=== PATIENT | female | born 1950 | race Caucasian/White ===

== ENCOUNTER 2016-09-16 10:08 | Emergency (ER) | payer MEDICARE ==
[2016-09-16] MEDS ORDERED: ONDANSETRON 4 MG/2 ML VIAL IVP STA ×2 (10:52→12:44)
[2016-09-16] MEDS ORDERED: SODIUM CHLORIDE 0.9% 1,000 ML IV ONE (10:52)
[2016-09-16] MEDS ORDERED: HYDROmorphone 1 MG/ML SYRINGE IVP STA (10:52)
[2016-09-16] MEDS ORDERED: KETOROLAC 60 MG/2 ML VIAL IVP STA (10:52)
[2016-09-16] MEDS ORDERED: HYDROmorphone 1 MG/ML SYRINGE ONE (11:12)
[2016-09-16] MEDS ORDERED: KETOROLAC 30 MG/ML VIAL ONE (11:12)
[2016-09-16] MEDS ORDERED: ONDANSETRON 4 MG/2 ML VIAL ONE ×2 (11:12→12:50)
[2016-09-16] MEDS ORDERED: DEXAMETHASONE 10 MG/ML VIAL PO STA (12:44)
[2016-09-16] MEDS ORDERED: TAMSULOSIN 0.4 MG CAPSULE PO STA (12:44)
[2016-09-16] MEDS ORDERED: TAMSULOSIN 0.4 MG CAPSULE ONE (12:50)
[2016-09-16] MEDS ORDERED: CHERRY SYRUP 10 ML UDC PO ONE (12:51)
[2016-09-16] MEDS ORDERED: DEXAMETHASONE 10 MG/ML VIAL ONE (12:51)
[2016-09-16] MEDS ORDERED: METOCLOPRAMIDE 10 MG/2 ML VIAL IVP STA (13:16)
[2016-09-16] MEDS ORDERED: METOCLOPRAMIDE 10 MG/2 ML VIAL IVP ONE (13:19)
== END 2016-09-16 14:04 | disposition home or self-care (01) ==
DX: N13.2 Hydronephrosis with renal and ureteral calculous obstruction (principal); K57.30 Diverticulosis of large intestine without perforation or abscess without bleeding; R10.32 Left lower quadrant pain
CPT/HCPCS: 36415; 74176; 80053; 83690; 85025; 96374; 96375; 96376; 99283; 99284; A9270; J1170

== ENCOUNTER 2017-02-05 11:48 | Outpatient (CLI) | payer MEDICARE ==
--- NOTE | 2017-02-05 15:37 | XRAY Report ---
FOUR VIEW RIGHT KNEE: 02/05/2017 CLINICAL INDICATION: Pain. FINDINGS: AP, lateral, and bilateral oblique views of the right knee demonstrate no evidence of acut e fracture or dislocation. The joint spaces are preserved. No effusion is present. IMPRESSION: NORMAL RIGHT KNEE. JOB #: [id number] EXT JOB #:[id number]
== END 2017-02-05 11:49 | disposition home or self-care (01) ==
LOC: DI.S 11:48
PROVIDERS: ATTEND Registered Nurse
DX: M25.561 Pain in right knee (principal)

== ENCOUNTER 2017-03-04 09:15 | Outpatient (CLI) | payer MEDICARE ==
--- NOTE | 2017-03-04 14:50 | MRI Report ---
EXAM: RIGHT KNEE MRI WITHOUT CONTRAST EXAM DATE: 03/04/2017 10:18 AM. CLINICAL HISTORY: Constant right knee pain for 3 months with no history of trauma. Pain worst in the lateral and posterior joint line. COMPARISON: X-ray 02/05/2017. TECHNIQUE: Multiplanar, multisequence T1-weighted and fluid-sensitive sequences of the knee without c ontrast. Other: None. FINDINGS: Bones: No fractures or subluxations. No marrow edema. No bone lesions. Articular Cartilage: There is moderate thinning of the hyaline cartilage of the medial compartment. T here is mild lateral compartment cartilage thinning. There is minimal erosion of the hyaline cartilag e of the medial patellar facet. Medial Meniscus: There is partial extrusion. Lateral Meniscus: There is an oblique undersurface tear of the posterior horn of the lateral meniscus . Cruciate Ligaments: The anterior and posterior cruciate ligaments are intact. Collateral Ligaments: The medial collateral and lateral collateral ligamentous structures are intact. Tendons: The quadriceps, patellar, semimembranosus, and popliteus tendons are unremarkable. Musculature: No edema or fatty atrophy. Other: There is a moderate-sized joint effusion with a popliteal cyst. The cyst has leaked into the s oft tissues of the calf. No loose bodies. The medial and lateral retinacula are intact. The subcuta neous tissues and fat pads are unremarkable. IMPRESSION: 1. Mild medial compartment osteoarthritis. Minimal lateral and patellofemoral osteoarthritis. 2. Degenerative tearing of the lateral meniscus. 3. Moderate-sized joint effusion with a leaking popliteal cyst. [facility] MUSCULOSKELETAL RADIOLOGY SECTION Referring Provider Line: [phone] SITE ID: [id number]
== END 2017-03-04 09:16 | disposition home or self-care (01) ==
LOC: DI 09:15
PROVIDERS: ATTEND Physician Assistant
DX: M17.11 Unilateral primary osteoarthritis, right knee (principal); M25.461 Effusion, right knee; M71.21 Synovial cyst of popliteal space [Baker], right knee; M23.300 Other meniscus derangements, unspecified lateral meniscus, right knee

== ENCOUNTER 2018-07-09 08:07 | Outpatient (CLI) | payer MEDICARE | END 2018-07-09 08:08 | disposition home or self-care (01) | LOC: DI 08:07 | PROVIDERS: ATTEND Registered Nurse | DX: R01.1 Cardiac murmur, unspecified (principal) | CPT/HCPCS: 93306 ==

== ENCOUNTER 2018-08-22 12:12 | Emergency (ER) | payer MEDICARE ==
[2018-08-22 12:20] VITALS: BP 147/84
--- NOTE | 2018-08-22 13:45 | Ultrasound Report ---
Reason: leg pain Procedure Date: 08/22/2018 Accession Number: [id number] / [id number] Procedure: US - Duplex Ext Veins Left CPT Code: FULL RESULT: EXAM: LEFT LOWER EXTREMITY VENOUS ULTRASOUND EXAM DATE: 08/22/2018 01:29 PM. CLINICAL HISTORY: Leg pain. COMPARISON: None. TECHNIQUE: Real-time sonographic vascular imaging was performed by the wick tender through the lower extremity utilizing both color-flow and Doppler spectral analysis. Multiple jewelry sales representative static images were saved for review. FINDINGS: Common Femoral Vein (CFV): Normal. CFV-GSV Junction: Normal. Profunda Femoral Vein (PFV): Normal. Femoral Vein (FV) Prox: Normal. Femoral Vein (FV) Mid: Normal. Femoral Vein (FV) Dist: Normal. Popliteal Vein: Normal. Posterior Tibial Veins: Normal. Peroneal Veins: Normal. Contralateral Side CFV: Normal. Other: None. IMPRESSION: No evidence for deep venous thrombosis. [facility]
--- NOTE | 2018-08-22 13:57 | ED Physician Documentation ---
PD HPI LOWER EXT INJURY - Stated complaint Stated Complaint: POST SURGICAL COMPLICATIONS - Chief complaint Chief Complaint: Ext Problem - History obtained from History obtained from: Patient - History of Present Illness PD HPI LOW EXT INJURY LOCATION: Left (She is 5 days out from a left partial knee replacement by Dr. Jorgensen at [facility]. She noticed that ever since the surgery her calf hurt more than her incision and she was referred here to rule out DVT. She has no history of DVT. No chest pain or trouble breathing.) Review of Systems Constitutional: denies: Fever, Chills Throat: reports: Reviewed and negative Cardiac: reports: Reviewed and negative Respiratory: reports: Reviewed and negative PD PAST MEDICAL HISTORY - Past Medical History Past Medical History: No Cardiovascular: None Respiratory: None GI: None : None Musculoskeletal: None - Past Surgical History Past Surgical History: Yes General: Appendectomy Ortho: Knee replacement HEENT: Cataracts, Tonsil/Adenoidectomy - Present Medications Home Medications: Ambulatory Orders Medication Instructions Recorded Confirmed Calcium Carbonate/Vitamin D3 1 each PO DAILY 01/16/16 08/22/18 [Calcium 600-Vit D3 800 Tablet] Cholecalciferol (Vitamin D3) 1 each PO DAILY 01/16/16 08/22/18 [Vitamin D3] Promethazine [Phenergan] 25 mg PO Q6H PRN #20 tab 09/16/16 08/22/18 Oxycodone HCl/Acetaminophen 1 each PO DAILY 08/22/18 08/22/18 [Oxycodone-Acetaminophen 5-325] - Allergies Allergies/Adverse Reactions: Allergies Allergy/AdvReac Type Severity Reaction Status Date / Time codeine AdvReac Emesis Verified 08/22/18 12:20 fentanyl AdvReac Nausea Verified 08/22/18 12:20 - Social History Does the pt smoke?: No Smoking Status: Never smoker Does the pt drink ETOH?: Yes Does the pt have substance abuse?: No - Immunizations Immunizations are current?: No PD ED PE NORMAL - Vitals Vital signs reviewed: Yes - General General: Alert and oriented X 3, No acute distress - Extremities Extremities: Other (Anterior left knee incision is clean dry and intact, her calf is soft without significant swelling or tenderness. Normal pedal pulses.) - Neuro Neuro: Alert and oriented X 3, Normal speech Results - Vitals Vitals: Vital Signs - 24 hr 08/22/18 12:18 Temperature 36.1 C L Heart Rate 98 Respiratory 20 Rate Blood Pressure 147/84 H O2 Saturation 97 Oxygen O2 Source Room air - Rads (name of study) LLE duplex Radiology: EMP read contemporaneously (neg) Departure - Departure Disposition: 01 Home, Self Care Clinical Impression: Pain in extremity Condition: Good Record reviewed to determine appropriate education?: Yes Comments: As discussed if symptoms are persistent consider repeat ultrasound in 1 week. Return for new or worsening symptoms. Your blood pressure was elevated today on check into the emergency department. This does not mean that you have hypertension, it is a common phenomenon to come to the emergency department and have elevated blood pressure. I recommend that you see your primary care physician within the week to have it rechecked when you are feeling better. Discharge Date/Time: 08/22/18 14:10
== END 2018-08-22 14:10 | disposition home or self-care (01) ==
LOC: ED 12:12
DX: M79.605 Pain in left leg (principal); Z96.652 Presence of left artificial knee joint; R03.0 Elevated blood-pressure reading, without diagnosis of hypertension
CPT/HCPCS: 99282; 99283

== ENCOUNTER 2022-05-09 11:57 | Emergency (ER) | payer MEDICARE ==
[2022-05-09 12:10] VITALS: BP 195/89
--- NOTE | 2022-05-09 12:38 | ED Physician Documentation ---
PD HPI UPPER EXT INJURY - Stated complaint Stated Complaint: LEFT ARM INJURY - Chief complaint Chief Complaint: Ext Problem - History obtained from History obtained from: Patient - History of Present Illness Location: Left Timing - onset: Today - Additonal information Additional information: Simple trip and fall onto an outstretched left nondominant wrist today with moderate to severe pain. No other injuries. Review of Systems Constitutional: reports: Reviewed and negative Throat: reports: Reviewed and negative Cardiac: reports: Reviewed and negative Respiratory: reports: Reviewed and negative PD PAST MEDICAL HISTORY - Past Medical History Cardiovascular: None Respiratory: None GI: None : None Musculoskeletal: None - Past Surgical History Past Surgical History: Yes General: Appendectomy Ortho: Knee replacement HEENT: Cataracts, Tonsil/Adenoidectomy - Present Medications Home Medications: Ambulatory Orders Medication Instructions Recorded Confirmed Calcium Carbonate/Vitamin D3 1 each PO DAILY 01/16/16 08/22/18 [Calcium 600-Vit D3 800 Tablet] Cholecalciferol (Vitamin D3) 1 each PO DAILY 01/16/16 08/22/18 [Vitamin D3] predniSONE [Deltasone] 10 mg PO [id number] #42 tab 02/18/20 Oxycodone HCl/Acetaminophen 1 - 2 each PO Q6H PRN #14 tablet 05/09/22 [Percocet 5-325 mg Tablet] - Allergies Allergies/Adverse Reactions: Allergies Allergy/AdvReac Type Severity Reaction Status Date / Time loratadine [From Claritin] Allergy Rash Verified 05/09/22 12:05 codeine AdvReac Emesis Verified 02/18/20 08:03 fentanyl AdvReac Nausea Verified 02/18/20 08:03 - Social History Does the pt smoke?: No Smoking Status: Never smoker Does the pt drink ETOH?: Yes Does the pt have substance abuse?: No - Immunizations Immunizations are current?: No PD ED PE NORMAL - Vitals Vital signs reviewed: Yes - General General: Alert and oriented X 3, No acute distress - Neck Neck: Supple, no meningeal sign, No bony TTP - Extremities Extremities: Other (Tender with very slight deformity to the distal left radius with normal neurovascular function in the left hand.) - Neuro Neuro: Alert and oriented X 3, Normal speech Results - Vitals Vitals: Vital Signs - 24 hr 05/09/22 12:06 Temperature 37.0 C Heart Rate 80 Respiratory 18 Rate Blood Pressure 195/89 H O2 Saturation 97 Oxygen O2 Source Room air - Rads (name of study) X-rays of the left wrist and forearm demonstrate a slightly impacted radial fracture distally and an ulnar styloid fracture. Radiology: EMP read contemporaneously Procedures - Splint (location) Left upper extremity Splint applied by: Tech Type of splint: Fiberglass, Long arm, Sugar tong Other: Patient tolerated well, No complications, Neurovascular intact Departure - Departure Disposition: 01 Home, Self Care Clinical Impression: Fracture of left distal radius Qualifiers: Encounter type: initial encounter Fracture type: closed Fracture morphology: unspecified fracture morphology Qualified Code(s): S52.502A - Unspecified fracture of the lower end of left radius, initial encounter for closed fracture Condition: Good Record reviewed to determine appropriate education?: Yes Instructions: ED Fx Forearm Radius Ulna Redu Requ Prescriptions: Oxycodone HCl/Acetaminophen [Percocet 5-325 mg Tablet] 1 - 2 each PO Q6H PRN #14 tablet PRN Reason: pain Comments: You are seen today for a left fifth distal radius fracture. Keep the splint on and dry, do not remove it. Follow-up with orthopedics within the week, call Wednesday for an appointment. They will reevaluate and decide on surgery versus casting. I sent your prescription electronically to [facility] in [place]. I am prescribing a short course of narcotic pain medication for you. These are potentially dangerous and addictive medications that should be used carefully. These medications may constipate you. Take an suwg-gex-sbcvsht stool softener (docusate) twice daily with plenty of water while taking these medications. If you go 24 hours without a bowel movement, take rpil-wyc-[id number] miralax, per package instructions. Do not drink or drive while taking these medications. If you received narcotic or sedating medications while in the emergency department, do not drive for 24 hours. Store this medication in a safe, secure place and out of reach of children. It is a violation of federal law to give or sell this medication to another person or to use in a manner other than prescribed. The ED will not refill narcotic prescriptions, including prescriptions lost or stolen. To dispose of unwanted medications: 1. [facility] at [address] in [place] has a medication drop box. They accept prescription medications (in pill form) Wednesday through Wednesday 9:00 a.m. to 5:00 p.m. 2. [facility] accepts prescription medications (in pill form only) for disposal year round. Call for more information. 3. Contact the [facility] for the next [facility] sponsored prescription drug collection event. , [phone], or [phone]; Note that many narcotic pain relievers also contain Tylenol/acetaminophen. Please ensure that your total dose of acetaminophen from all sources does not exceed 3 g (3000 mg) per day. Discharge Date/Time: 05/09/22 13:11
--- NOTE | 2022-05-09 12:43 | XRAY Report ---
PROCEDURE: Forearm LT INDICATIONS: Trauma TECHNIQUE: 2 views of the forearm were acquired. COMPARISON: Same day left wrist radiographs. FINDINGS: Bones: Comminuted distal radius fracture. Ulnar styloid fracture. No shaft fracture. No dislocations . No suspicious bony lesions. Soft tissues: No suspicious soft tissue calcifications or masses. IMPRESSION: Distal radius and ulnar styloid fracture. No additional fracture. Reviewed by: Callum Yarbrough MD on 05/09/2022 11:42 AM RAY Approved by: Callum Yarbrough MD on 05/09/2022 11:42 AM RAY Station ID: [id number]
--- NOTE | 2022-05-09 12:44 | XRAY Report ---
PROCEDURE: Wrist 4 View LT INDICATIONS: Trauma TECHNIQUE: 4 views of the wrist were acquired. COMPARISON: Same day at left forearm radiographs. FINDINGS: Bones: Comminuted distal radius fracture. Minimal displacement. Intra-articular extension. No disloca tion. Ulnar styloid fracture. Mild displacement. No suspicious bony lesions. Moderate degenerative ch daniel most pronounced at the first CMC joint. Scaphoid view: Intact Soft tissues: No suspicious soft tissue calcifications. IMPRESSION: Comminuted distal radius fracture. Ulnar styloid fracture. Reviewed by: Callum Yarbrough MD on 05/09/2022 11:43 AM RAY Approved by: Callum Yarbrough MD on 05/09/2022 11:43 AM RAY Station ID: [id number]
== END 2022-05-09 13:11 | disposition home or self-care (01) ==
LOC: ED 11:57
DX: S52.612A Displaced fracture of left ulna styloid process, initial encounter for closed fracture (principal); S52.512A Displaced fracture of left radial styloid process, initial encounter for closed fracture; W01.0XXA Fall on same level from slipping, tripping and stumbling without subsequent striking against object, initial encounter
CPT/HCPCS: 29125; 99283

== ENCOUNTER 2022-09-18 08:16 | Outpatient (CLI) | payer MEDICARE ==
--- NOTE | 2022-09-18 09:59 | DEXA Report ---
PROCEDURE: Dexa Spine and/or Hip INDICATIONS: OSTEOPOROSIS TECHNIQUE: Dual energy x-ray absorptiometry (DXA) was performed on a [employer] System. Regions measur ed are the AP Spine, femoral neck, and if needed forearm. COMPARISON: None. FINDINGS: Lumbar Spine: Excluding L4 due to increased density. Bone Mineral Density 0.941 g/cm/cm,T score -1.9, osteopenia. Left Femoral Neck: Bone Mineral Density 0.564 g/cm/cm, T score -3.4, osteoporosis. Left Hip: Bone Mineral Density 0.549 g/cm/cm,T score -3.6, osteoporosis. Impression: Osteoporosis. Patients with diagnosis of osteoporosis or osteopenia should have regular bone mineral density assess ment. For those eligible for Medicare, routine testing is allowed once every 2 years. Testing frequ ency can be increased for patients who have rapidly progressing disease or for those who are receivin g medical therapy to restore bone mass. Reviewed by: Tee Mackay on 09/18/2022 9:57 AM PST Approved by: Tee Mackay on 09/18/2022 9:57 AM PST Station ID: [id number]
== END 2022-09-18 08:17 | disposition home or self-care (01) ==
LOC: DI 08:16
PROVIDERS: ATTEND Registered Nurse
DX: M81.0 Age-related osteoporosis without current pathological fracture (principal)

== ENCOUNTER 2024-02-03 13:45 | Outpatient (CLI) | payer MEDICARE | END 2024-02-03 23:59 | disposition left against medical advice (07) | LOC: EMS 13:45 | DX: R42 Dizziness and giddiness (principal); R53.1 Weakness; R11.0 Nausea; R55 Syncope and collapse ==

== ENCOUNTER 2024-02-08 12:50 | Outpatient (CLI) | payer MEDICARE ==
--- NOTE | 2024-02-10 10:51 | DEXA Report ---
PROCEDURE: Dexa Spine and/or Hip INDICATIONS: OSTEOPOROSIS TECHNIQUE: Dual energy x-ray absorptiometry (DXA) was performed on a [employer] System. Regions measur ed are the AP Spine, femoral neck, and if needed forearm. COMPARISON: DEXA on September 18, 2022 FINDINGS: Lumbar Spine: Bone Mineral Density: 1.006 g/cm/cm,T score: -1.4. Since the most recent prior study, there has been a statistically significant increase in bone mineral density by 6.9 percent. Left Femoral Neck: Bone Mineral Density: 0.591 g/cm/cm, T score: -3.2. Left Hip: Bone Mineral Density: 0.574 g/cm/cm,T score: -3.4. There has been no statistically significant change in bone mineral density since the prior study. (T score greater or equal to -1.0: NORMAL) (T score from -1.1 to -2.4: OSTEOPENIA) (T score less than or equal to -2.5 to: OSTEOPOROSIS) Impression: By WHO criteria, this patient has osteoporosis. Interval statistical increase in bone mineral density of the lumbar spine. No statistical interval ch daniel in bone mineral density of the hip. Patients with diagnosis of osteoporosis or osteopenia should have regular bone mineral density assess ment. For those eligible for Medicare, routine testing is allowed once every 2 years. Testing frequ ency can be increased for patients who have rapidly progressing disease or for those who are receivin g medical therapy to restore bone mass. Reviewed by: Eric Hernandez MD on 02/10/2024 10:49 AM PDT Approved by: Eric Hernandez MD on 02/10/2024 10:49 AM PDT Station ID: [id number]
== END 2024-02-08 12:51 | disposition home or self-care (01) ==
LOC: DI 12:50
PROVIDERS: ATTEND Registered Nurse
DX: M81.0 Age-related osteoporosis without current pathological fracture (principal)